=== PATIENT | male | born 1990 | race Caucasian/White ===

== ENCOUNTER 2025-04-15 06:50 | Emergency (ER) | payer OTHER, SELFPAY ==
[2025-04-15] VITALS (14 sets, daily range): BP systolic 133–169; BP diastolic 92–116; PULSE 57–99; RESP 11–18; TEMP 36.9; O2SAT 95–99; BMI 28.1
--- NOTE | 2025-04-15 07:04 | ED_ITS ---
HPI - General Adult General Chief complaint: Nausea/Vomiting/Diarrhea Stated complaint: N/V/D/ stopped drinking x 6 days Time Seen by Provider: 04/15/25 06:58 History of Present Illness HPI narrative: 34-year-old gentleman with no significant past medical or surgical history presents with multiple episodes of nonbilious nonbloody nausea vomiting watery runny diarrhea and relieved with Tums and Pepto-Bismol for the past 1-2 weeks. Of note he was exposed to his and kids with similar symptoms. He is not up-to-date on his shots. He does endorse fever, chills, body aches, but no cough, sore throat, chest pain, shortness of breath, back pain. He also reports drinking heavily over the last couple of weeks with 1 pt of liquor each day. Last drink was at 6:30 a.m. this morning that was wine but he normally drinks vodka. Other than what is stated 14 point review of system is negative. Related Data Previous Rx's ?Medication ?Instructions ?Recorded chlordiazepoxide HCl 25 mg capsule 25 mg PO TID PRN an xiety #30 caps 04/15/25 gabapentin 300 mg capsule 300 mg PO TID #30 caps 04/15 ondansetron HCl 4 mg tablet 4 mg PO Q6H PRN nausea and 04/15/25 vomiting #30 tabs Allergies Allergy/AdvReac Type Severity Reaction Status Date / Time No Known Drug Allergies Allergy Verified 04/15/25 07:11 Review of Systems Review of Systems ROS Unobtainable: All systems reviewed & are unremarkable except as noted in HPI and below Patient History Social History Smoking Status: Current some day smoker Exam Initial Vital Signs Initial Vital Signs: Vital Signs Pulse Rate 98 H 04/15/25 07:01 Blood Pressure 169/116 H 04/15/25 07:01 Pulse Oximetry 97 04/15/25 07:01 Course Orders Ordered: ED Orders 04/15/25 07:23 EKG-12 Lead Stat 04/15/25 07:41 Complete Blood Count AUTO DIFF Stat Comprehensive Metabolic Panel Stat Lipase Stat MAG [Magnesium] Stat 04/15/25 08:03 CT abdomen pelvis w con Stat 04/15/25 09:27 Urinalysis and Microscopic Stat Ondansetron HCl (Ondansetron 4 Mg/2 Ml Inj) 4 mg IV NOW PRN PRN Reason: Nausea And Vomiting Ondansetron HCl (Ondansetron 4 Mg Odt) 4 mg PO NOW PRN PRN Reason: Nausea And Vomiting Last Admin: 04/15/25 09:33 Dose: 4 mg Documented By: SBF Discontinued Medications Chlordiazepoxide HCl (Chlordiazepoxide 25 Mg Capsule) 25 mg PO NOW ONE Stop: 04/15/25 09:21 Last Admin: 04/15/25 09:27 Dose: 25 mg Documented By: SBF Diphenhydramine HCl (Diphenhydramine 50 Mg/Ml Vial) 50 mg IV NOW ONE Stop: 04/15/25 07:47 Last Admin: 04/15/25 07:47 Dose: 50 mg Documented By: SGF Droperidol (Droperidol 2.5 Mg/Ml Vial) 2.5 mg IV NOW ONE Stop: 04/15/25 07:24 Last Admin: 04/15/25 07:30 Dose: 2.5 mg Documented By: DESTINY Lactated Ringer's (Lactated Ringers) 1,000 mls @ 1,000 mls/hr IV BOLUS ONE Stop: 04/15/25 08:22 Last Admin: 04/15/25 07:30 Dose: 1,000 mls/hr Documented By: DESTINY Lorazepam (Lorazepam 2 Mg/Ml Inj) 2 mg IV NOW ONE Stop: 04/15/25 09:21 Last Admin: 04/15/25 09:27 Dose: 2 mg Documented By: DESTINY Vital Signs Vital signs: Vital Signs - 8 hr 04/15/25 07:01 04/15/25 07:01 04/15/25 07:07 Temperature 98.5 F Pulse Rate 98 H 94 H Respiratory Rate 16 Blood Pressure 169/116 H 169/116 H Pulse Oximetry 97 98 Oxygen Delivery Method Room Air 04/15/25 07:30 04/15/25 07:43 04/15/25 07:43 Temperature Pulse Rate 83 91 H Respiratory Rate 11 L Blood Pressure 149/99 H Pulse Oximetry 98 95 Oxygen Delivery Method 04/15/25 08:05 04/15/25 08:05 04/15/25 08:30 Temperature Pulse Rate 57 L 74 Respiratory Rate 16 15 Blood Pressure 159/104 H Pulse Oximetry 95 97 Oxygen Delivery Method 04/15/25 08:30 04/15/25 09:00 04/15/25 09:00 Temperature Pulse Rate 66 Respiratory Rate 14 Blood Pressure 147/100 H 133/92 H Pulse Oximetry 97 Oxygen Delivery Method 04/15/25 09:30 04/15/25 09:30 04/15/25 10:00 Temperature Pulse Rate 88 82 Respiratory Rate 13 17 Blood Pressure 152/105 H Pulse Oximetry 99 97 Oxygen Delivery Method 04/15/25 10:00 Temperature Pulse Rate Respiratory Rate Blood Pressure 136/101 H Pulse Oximetry Oxygen Delivery Method Medical Decision Making Lab Data 04/15/25 07:41 04/15/25 07:41 Labs: Lab Results 04/15/25 04/15/25 Range/Units 07:41 09:27 WBC 7.6 (4.5-11.0) X10^3/uL RBC 5.81 (4.5-5.9) X10^6/uL Hgb 18.1 H (13.5-17.5) g/dL Hct 51.2 (41-53) % MCV 88.2 (80-100) fL MCH 31.1 (26-34) PG MCHC 35.3 (30-36) % RDW 12.8 (11.6-14.8) % Plt Count 363 (150-400) X10^3/uL Neut % (Auto) 68.2 (50-75) % Lymph % (Auto) 23.0 L (25-40) % [place] % (Auto) 6.8 (3-14) % Eos % (Auto) 1.1 L (2-4) % Baso % (Auto) 0.9 (0-2) % Neut # (Auto) 5200 (7662-5663) /uL Lymph # (Auto) 1700 (0028-6018) /uL [place] # (Auto) 500 (0-900) /uL Eos # (Auto) 100 (0-450) /uL Baso # (Auto) 100 (0-100) /uL Sodium 130 L (137-145) mmol/L Potassium 3.4 (3.4-5.1) mmol/L Chloride 93 L (98-107) mmol/L Carbon Dioxide 27 (22-32) mmol/L BUN 22 H (9-20) mg/dL Creatinine 1.04 (0.66-1.25) mg/dL Estimated GFR > 60 (>60) mL/min BUN/Creatinine Ratio 21.2 (6-22) Glucose 106 H (70-99) mg/dL Calcium 10.3 H (8.4-10.2) mg/dL Magnesium 1.3 L (1.6-2.3) mg/dL Total Bilirubin 1.8 H (0.2-1.3) mg/dL AST 791 H (17-59) IU/L ALT 375 H (<50) IU/L Alkaline Phosphatase 58 (38-126) U/L Total Protein 6.9 (6.3-8.2) g/dL Albumin 4.1 (3.5-5.0) g/dL Globulin 2.8 (1.7-4.1) g/dL Albumin/Globulin Ratio 1.5 (1.0-2.8) Lipase 142 (23-300) U/L Urine Color Yellow Urine Appearance Clear Urine pH 6.5 (4.5-8.0) Ur Specific [place] <=1.005 (1.000-1.035) Urine Protein Negative (Negative) Urine Glucose (UA) Negative (Negative) g/dL Urine Ketones Negative (NEGATIVE) Urine Occult Blood Negative (Negative) Urine Nitrate Negative (Negative) Urine Bilirubin Negative (NEGATIVE) Urine Urobilinogen 0.2 (0.2) E.U./dL Ur Leukocyte Esterase Negative (NEGATIVE) Urine RBC 0-1/hpf (0-5/HPF) Urine WBC 0-1/hpf (0-5/HPF) Ur Squamous Epith Cells 0-1 /hpf (0-5/HPF) Amorphous Sediment 1+ Urine Bacteria None seen (None) Ur Culture Indicated? Cult not indicated Vol Urine Centrifuged 10ml (spun) Imaging Data CT scan - abdomen/pelvis: Radiologist's Impression: [address] [address] [address] Scan Report Signed Patient: Brandon Mejia MR#: [id number] : 1990 Acct:[id number] Age/Sex: 34 / M Date of Service: 04/15/25 Loc: ED Accession Number: [id number] Procedure: CT abdomen pelvis w con Ordering Provider: Camacho Corona D.O. PROCEDURE: CT ABDOMEN PELVIS W CON INDICATIONS: abd pain n/v TECHNIQUE: After the administration of intravenous contrast, axial sections acquired from the lung bases to the pubic symphysis. Coronal and sagittal reformats were performed. For radiation dose reduction, the following was used: automated exposure control, adjustment of mA and/or kV according to patient size. COMPARISON: None. FINDINGS: Image quality: Diagnostic. Lower Chest: No significant findings. ABDOMEN: Liver: No solid mass. Liver measures 19.8 cm with diffuse steatosis. Gallbladder: No radiopaque gallstones or wall thickening. Biliary ducts: No biliary dilation. Pancreas: No ductal dilation. Spleen: Size is within normal limits. Adrenal Glands: No adrenal nodules. Kidneys and Ureters: No hydronephrosis. No solid mass. No complex renal cystic lesion which requires follow up. Stomach and Bowel: Normal colonic caliber, without significant wall thickening. Hiatal hernia. Appendix is normal. Peritoneum: No abnormal intraperitoneal fluid. No free air. Ventral Wall: Fat containing ventral hernia. Abdominal Nodes: No retroperitoneal or mesenteric adenopathy by size criteria. Vessels: Aorta and inferior vena cava are normal in size. PELVIS: Pelvic Organs: Unremarkable. Bladder: No bladder wall thickening, accounting for underdistention. Pelvic Nodes: No enlarged lymph nodes. Miscellaneous: No inguinal hernias are seen. Bones: No aggressive osseous abnormality. IMPRESSION: No acute intra-abdominal or pelvic process. Prominent steatosis. ECG Data Interpretation: NSR HR 75 IA [address]-t wave change No previous EKG to compare MDM Narrative Medical decision making narrative: All lab work, vital signs, nurse triage note, medication list, previous ER visits, and all imaging studies reviewed. CT abdomen showed no acute intra- abdominal or pelvic process prominent steatosis WBC 7.6 hemoglobin 18.1 platelet 363 sodium 130 potassium 3.4 chloride 93 CO2 27 BUN 22 creatinine 1.04 glucose 106 magnesium 1.3 T bili 1.8 AST 791 ALT 375. Patient given fluids Mag rider Zofran Librium Ativan. He will be discharged on Narcan prepack and gabapentin rx. Differential diagnosis alcohol use, abuse, withdrawal, pancreatitis, dehydration, electrolyte derangement. Discharge Plan Departure Patient Disposition: Home Clinical Impression: Alcohol abuse, Hypomagnesemia Instructions: Alcohol Use Disorder Activity Restrictions/Additional Instructions: Return with new or worsening symptoms. Take your medicines as directed. Follow up with PCP in 1-2 weeks if no improvement in symptoms. Prescriptions: New ondansetron HCl 4 mg tablet 4 mg PO Q6H PRN (Reason: nausea and vomiting) Qty: 30 0RF gabapentin 300 mg capsule 300 mg PO TID Qty: 30 0RF chlordiazepoxide HCl 25 mg capsule 25 mg PO TID PRN (Reason: anxiety) Qty: 30 0RF Stand Alone Forms: Patient Portal/API
[2025-04-15] MEDS: LACTATED RINGERS 1,000 ML 1000 ML IV ×2 (07:30→10:59)
[2025-04-15] MEDS: droPERidol 2.5 MG/ML VIAL IV (07:30)
--- NOTE | 2025-04-15 07:33 | EKG_ITS ---
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
[2025-04-15] MEDS: diphenhydrAMINE 50 MG/ML VIAL IV (07:47)
--- NOTE | 2025-04-15 07:47 | PC.NURSE ---
patient has been experiencing nausea, vomiting and diarrhea for several days states he has also cut back on his drinking since and has been feeling anxious
[2025-04-15 07:49] LABS: Add Manual Diff / Slide Review NO; Hematocrit 51.2 % (41-53); Hemoglobin 18.1 g/dL (13.5-17.5); Lymphocytes Absolute Auto 1700 /uL (1100-4500); Mean Corpuscular HGB Conc 35.3 % (30-36); Mean Corpuscular Hemoglobin 31.1 PG (26-34); Mean Corpuscular Volume 88.2 fL (80-100); Platelet Count 363 X10^3/uL (150-400)
[2025-04-15 08:02] LABS: Alanine Aminotransferase 375 IU/L (<50); Albumin 4.1 g/dL (3.5-5.0); Albumin Globulin Ratio 1.5 (1.0-2.8); Alkaline Phosphatase 58 U/L (38-126); Blood Urea Nitrogen 22 mg/dL (9-20); Calcium 10.3 mg/dL (8.4-10.2); Carbon Dioxide 27 mmol/L (22-32); Chloride 93 mmol/L (98-107); Estimated Glomerular Filt Rate > 60 mL/min (>60); Globulin 2.8 g/dL (1.7-4.1); Glucose 106 mg/dL (70-99); HEMOLYSIS < 15 (0-50); Lipase 142 U/L (23-300); Magnesium 1.3 mg/dL (1.6-2.3); Potassium 3.4 mmol/L (3.4-5.1); Sodium 130 mmol/L (137-145); Total Protein 6.9 g/dL (6.3-8.2)
--- NOTE | 2025-04-15 08:03 | DI.CT.S_ITS ---
PROCEDURE: CT ABDOMEN PELVIS W CON INDICATIONS: abd pain n/v TECHNIQUE: After the administration of intravenous contrast, axial sections acquired from the lung bases to the pubic symphysis. Coronal and sagittal reformats were performed. For radiation dose reduction, the following was used: automated exposure control, adjustment of mA and/or kV according to patient size. COMPARISON: None. FINDINGS: Image quality: Diagnostic. Lower Chest: No significant findings. ABDOMEN: Liver: No solid mass. Liver measures 19.8 cm with diffuse steatosis. Gallbladder: No radiopaque gallstones or wall thickening. Biliary ducts: No biliary dilation. Pancreas: No ductal dilation. Spleen: Size is within normal limits. Adrenal Glands: No adrenal nodules. Kidneys and Ureters: No hydronephrosis. No solid mass. No complex renal cystic lesion which requires follow up. Stomach and Bowel: Normal colonic caliber, without significant wall thickening. Hiatal hernia. Appendix is normal. Peritoneum: No abnormal intraperitoneal fluid. No free air. Ventral Wall: Fat containing ventral hernia. Abdominal Nodes: No retroperitoneal or mesenteric adenopathy by size criteria. Vessels: Aorta and inferior vena cava are normal in size. PELVIS: Pelvic Organs: Unremarkable. Bladder: No bladder wall thickening, accounting for underdistention. Pelvic Nodes: No enlarged lymph nodes. Miscellaneous: No inguinal hernias are seen. Bones: No aggressive osseous abnormality. IMPRESSION: No acute intra-abdominal or pelvic process. Prominent steatosis. Dictated by: Jaja Rodríguez M.D. on 04/15/2025 at 8:07 Approved by: Jaja Rodríguez M.D. on 04/15/2025 at 8:10
[2025-04-15 09:32] LABS: Appearance Urine UA CLEAR; Bilirubin Urine UA NEGATIVE (NEGATIVE); Color Urine UA YELLOW; Glucose Urine UA NEGATIVE (Negative); Ketones Urine UA NEGATIVE (NEGATIVE); Leukocyte Esterase Urine UA NEGATIVE (NEGATIVE); Nitrite Urine UA NEGATIVE (Negative); Occult Blood Urine UA NEGATIVE (Negative); Protein Urine UA NEGATIVE (Negative); Specific Gravity Urine UA <=1.005 (1.000-1.035); Urobilinogen Urine UA 0.2 E.U./dL (0.2); pH Urine UA 6.5 (4.5-8.0)
[2025-04-15] MEDS: ONDANSETRON 4 MG ODT PO (09:33)
[2025-04-15 09:42] LABS: Culture Indicated Urine Cult Not Indicated
[2025-04-15] MEDS: NALOXONE 4 MG NASAL SPRAY MISC (10:58)
[2025-04-15] MEDS: MAGNESIUM SULFATE 2 GM/50 ML PIGGYBACK IV (10:58)
== END 2025-04-15 12:19 | disposition home or self-care (01) ==
PROVIDERS: Emergency Provider Family Medicine
DX: E83.42 Hypomagnesemia (principal); F10.10 Alcohol abuse, uncomplicated; R19.7 Diarrhea, unspecified
CPT/HCPCS: 36415; 74177; 80053; 81001; 83690; 83735; 85025; 93005; 96374; 96375; 99284; A9270; J1200; J1790; J2060; J3475; J7120; Q9967